=== PATIENT | male | born 1995 | race Caucasian/White ===

== ENCOUNTER 2023-11-20 02:20 | Emergency (ER) | payer OTHER ==
[~2023-11-20] VITALS: Ht 170.2 cm; Wt 65.3 kg
[2023-11-20 02:33] VITALS: BP_SYST 122; PULSE 108; RESP 16; TEMP 98.6; O2SAT 95
[2023-11-20] MEDS: ACETAMINOPHEN 500 MG TABLET PO ONE (02:59)
[2023-11-20 03:13] LABS: BASOPHILS # (AUTO) 0.1 K/uL (0.0-0.2); BASOPHILS % (AUTO) 0.6 % (0.0-2.0); EOSINOPHILS # (AUTO) 0.2 K/uL (0.0-0.4); EOSINOPHILS % (AUTO) 1.9 % (0.0-4.0); HEMATOCRIT 44.7 % (36-54); HEMOGLOBIN 15.5 g/dL (14.0-18.0); MEAN CORPUSCULAR HEMOGLOBIN 30 pg (27-31); MEAN CORPUSCULAR HGB CONC 35 % (32-36); MEAN CORPUSCULAR VOLUME 87 fL (79.0-98.0); MONOCYTES # (AUTO) 1.6 K/uL (0.0-1.0); MONOCYTES % (AUTO) 18.3 % (1.7-9.3); NEUTROPHILS % (AUTO) 68.2 % (40.0-70.0); PLATELET COUNT (AUTO) 174 K/uL (130-430); RED BLOOD CELL COUNT(AUTO) 5.14 MIL/uL (4.2-6.2); RED CELL DISTRIBUTION WIDTH 13.1 % (9.0-15.0); WHITE BLOOD COUNT (AUTO) 8.7 K/uL (4.8-10.8)
[2023-11-20 03:39] LABS: ANION GAP 10 (5-15); CALCIUM 8.5 mg/dL (8.4-11.0); CARBON DIOXIDE 28 mmol/L (23-29); CHLORIDE 102 mmol/L (98-107); CREATININE 1.22 mg/dL (0.55-1.30); GFR AFRICAN AMERICAN 92 mL/min (>90); GLUCOSE 91 mg/dL (74-106); POTASSIUM 3.5 mmol/L (3.5-5.1); SODIUM SERUM 140 mmol/L (136-145); UREA NITROGEN, BLOOD 15 mg/dL (8-21)
[2023-11-20 03:40] LABS: GFR NON AFRICAN-AMERICAN 76 mL/min (>90)
[2023-11-20] MEDS ORDERED: NIRM1TAB9 PO (03:49)
[2023-11-20 04:59] VITALS: BP_SYST 122; PULSE 108; RESP 16; TEMP 98.6; O2SAT 95
== END 2023-11-20 04:18 | disposition home or self-care (01) ==
LOC: SED 02:20
DX: U07.1 COVID-19 (principal); R55 Syncope and collapse; Z79.899 Other long term (current) drug therapy
CPT/HCPCS: 36415; 71045; 80048; 84484; 85025; 85379; 93005; 99285

== ENCOUNTER 2023-11-22 10:40 | Emergency (ER) | payer OTHER ==
[~2023-11-22] VITALS: Ht 170.2 cm; Wt 65.3 kg
[~2023-11-22 10:40] MED LIST: NIRM1TAB9 PO
[2023-11-22 11:33] VITALS: BP_SYST 117; PULSE 71; RESP 18; TEMP 97.7; O2SAT 98
[2023-11-22] MEDS ORDERED: HYDC1% TP (14:38)
== END 2023-11-22 15:09 | disposition home or self-care (01) ==
LOC: SED 10:40
DX: U07.1 COVID-19 (principal); R21 Rash and other nonspecific skin eruption; J45.909 Unspecified asthma, uncomplicated; Z79.899 Other long term (current) drug therapy
CPT/HCPCS: 99282